=== PATIENT | female | born 1935 | race Caucasian/White ===

== ENCOUNTER 2017-01-30 13:38 | Outpatient (CLI) | payer MEDICARE ==
[~2017-01-30 13:38] MED LIST: ALLOPURINOL100 MG PO; AMLO5TAB PO; AMPICILLIN500 MG PO; ASACOL PO; ASACOL400 MG PO; ASPIRIN ADULT L81 M3 PO; ASPIRIN325 M1 PO; AVAPRO75 MG PO; BISOPROLOL/HCTZ1 TA3 PO; BISOPROLOL/HCTZ1 TAB PO; CEFTIN 250MG T250 MG PO; CEFUROXIME AXE250 MG PO; CEFUROXIME250 MG PO; CHOLINE PO; CIPRO 500MG TA500 MG PO; CIPRO PO; CIPRO XR500 MG PO; COZAAR50 MG PO; CRESTOR10 MG PO; CRESTOR20 MG PO; CYCLOBENZ5 MG PO; DIFLUCAN 100MG100 MG PO; DOXAZOSIN MESYLA1 MG NG; FLAGYL 500MG.500 MG PO; FUROSEMIDE40 MG PO; GABAPENTIN100 M1 PO; HUMALOG 75100 UNITS/ SC; HUMALOG MIX 75/10 ML SC; HUMALOG100 U/M1 SC; HYDRALAZINE HCL25 M1 PO; HYDRALAZINE HY100 MG PO; IMDUR 60MG. TAB60 MG PO; IMDUR30 MG PO; IRON TABLETS325 MG PO; ISOSORBIDE MONO60 MG PO; Isosorbide Mono60 MG PO; LANSOPRAZOLE30 MG PO; LANTUS INS100 UNITS/ SC; LEADER MAGNESIU1 TAB PO; LIDODERM 5% PA1 EACH TD; LISINOPRIL 5MG T5 MG PO; LOVAZA1 GM PO; LYRICA50 MG PO; MACRODANTIN100 MG PO; MAGNESIUM250 M1 PO; MILK OF MA400 MG/51 PO; MIRALAX17 GM/PACK PO; NEXIUM40 MG PO; NITROFURANTOIN100 M2 PO; NITROFURANTOIN50 MG PO; NITROGLYCERIN0.4 MG SL; OMEPRAZOLE20 MG PO; ONDANSETRON4 MG PO; Oxybutynin5 MG PO; PHILLIPS' STOO100 MG PO; PLAVIX 75MG TAB75 MG PO; PLAVIX75 MG PO; PRAVASTATIN SOD40 MG PO; PRILOSEC20 M1 PO; PRILOSEC40 MG PO; PROCARDIA XL 3030 MG PO; PROTONIX40 MG PO; RANEXA500 M1 PO; RANEXA500 MG PO; ROPINIROLE 0.0.25 MG PO; TAZTIA XT180 MG PO; TORSEMIDE20 MG PO; TRAMADOL 50MG T50 M1 PO; TRILIPIX45 M1 PO; TRILIPIX45 MG PO; TUMS 400MG TAB400 MG PO; VENTOLIN H0.09 MG/AC IH; VITAMIN D PO
[2017-01-30] MEDS ORDERED: HUMALOG MI100 UNIT/1 SQ (14:09)
[2017-01-30 14:12] VITALS: BP 163/62
== END 2017-01-30 14:30 | disposition home or self-care (01) ==
LOC: COP 13:38
DX: N18.4 Chronic kidney disease, stage 4 (severe) (principal); D63.1 Anemia in chronic kidney disease
CPT/HCPCS: J0885

== ENCOUNTER → 2017-02-13 | Outpatient (CLI) | payer MEDICARE ==
[~2017-02-13] MED LIST changes: +HUMALOG MI100 UNIT/1 SQ
[2017-02-13 14:18] LABS: HEMOGLOBIN 9.6 g/dL (12.2-16.2)
[2017-02-13 14:32] VITALS: BP 182/51
== END ==
LOC: COP 13:50
PROVIDERS: Internal Medicine Nephrology
DX: N18.4 Chronic kidney disease, stage 4 (severe) (principal); D63.1 Anemia in chronic kidney disease
CPT/HCPCS: J0885

== ENCOUNTER 2017-02-27 13:41 | Outpatient (CLI) | payer MEDICARE ==
[2017-02-27 14:15] VITALS: BP 158/65
== END 2017-02-27 14:15 | disposition home or self-care (01) ==
LOC: COP 13:41
DX: N18.4 Chronic kidney disease, stage 4 (severe) (principal); D63.1 Anemia in chronic kidney disease
CPT/HCPCS: J0885